=== PATIENT | female | born 2000 | race Caucasian/White ===

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

== ENCOUNTER 2018-01-19 21:21 | Emergency (ER) | payer MEDICAID ==
[~2018-01-19] VITALS: Ht 162.6 cm; Wt 52.2 kg
[2018-01-19 21:30] VITALS: BP 153/84
[2018-01-19 22:06] LABS: APPEARANCE,URINE CLOUDY (CLEAR); BILIRUBIN,URINE NEGATIVE (NEGATIVE); BLOOD, URINE NEGATIVE Ery/uL (NEGATIVE); COLOR,URINE YELLOW (YELLOW); KETONES,URINE NEGATIVE (NEGATIVE); LEUKOCYTE ESTERASE ,URINE NEGATIVE (NEGATIVE); NITRITE, URINE NEGATIVE (NEGATIVE); PROTEIN,URINE NEGATIVE (NEGATIVE); UGLUCOSE NEGATIVE (NEGATIVE)
[2018-01-19 22:10] LABS: BACTERIA,URINE Few /HPF (None Seen); RBC,URINE 0-2 /HPF (0-2); SQUAMOUS EPITHELIAL CELL,UR Few /HPF (None Seen); URINE AMORPHOUS PHOSPHATES Moderate /HPF (None Seen); WBC,URINE 0-2 /HPF (0-3)
--- NOTE | 2018-01-19 23:00 | NUR ---
Patient discharged to home in stable condition. Written and verbal after care instructions given. Patient verbalizes understanding of instruction. VSS upon discharge.
== END 2018-01-19 23:01 | disposition home or self-care (01) ==
LOC: ER 21:22
DX: R10.32 Left lower quadrant pain (principal); N94.0 Mittelschmerz; G43.909 Migraine, unspecified, not intractable, without status migrainosus; F41.9 Anxiety disorder, unspecified
CPT/HCPCS: 76856; 81001; 84703; 87491; 87591; 99285; A4606; Z7610; 81000-TC

== ENCOUNTER 2018-04-10 21:42 | Emergency (ER) | payer OTHER ==
[~2018-04-10] VITALS: Ht 162.6 cm; Wt 54.4 kg
--- NOTE | 2018-04-11 00:11 | NUR ---
PT BIBSELF PT C/O TINGLING SENSATION ON LEFT ARM, HEADACHE SINCE THIS MORNING. PT AOX3 RR EVEN AND UNLABORED. NO SOB NOTED. PT NOT DIAPHORETIC. PT GOWNED AND PLACED ON MONITOR WAITING FOR MD NEGRON.
--- NOTE | 2018-04-11 00:25 | NUR ---
DR. BUTT AT BEDSIDE FOR EVAL.
[2018-04-11] MEDS ORDERED: ASPIRIN 81 MG TAB.CHEW PO ONE (00:30)
--- NOTE | 2018-04-11 00:35 | NUR ---
CALLED LAB FOR BLOOD DRAW.
[2018-04-11] MEDS ORDERED: ASPIRIN 81 MG TAB.CHEW ONE (00:41)
--- NOTE | 2018-04-11 00:43 | NUR ---
LAB AT BEDSIDE FOR BLOOD DRAW
--- NOTE | 2018-04-11 00:49 | NUR ---
MOTHER AT BEDSIDE.
--- NOTE | 2018-04-11 00:52 | NUR ---
RADIOLOGY AT BEDSIDE FOR CXR
[2018-04-11 00:55] LABS: BASOPHILS % (AUTO) 0.2 % (0.0-2.0); EOSINOPHILS % (AUTO) 0.6 % (0.0-6.0); HEMATOCRIT 44 % (33-45); HEMOGLOBIN 14.9 g/dL (11.5-14.8); LYMPHOCYTES # (AUTO) 2.2 /CMM (0.8-4.8); LYMPHOCYTES % (AUTO) 23.2 % (20.0-44.0); MEAN CORPUSCULAR HGB CONC 34 g/dl (31.0-36.0); MEAN CORPUSCULAR VOLUME 88 fL (82-100); MONOCYTES # (AUTO) 0.5 /CMM (0.1-1.30); MONOCYTES % (AUTO) 5.2 % (2.0-12.0); NEUTROPHILS # (AUTO) 6.6 /CMM (1.8-8.9); NEUTROPHILS % (AUTO) 70.8 % (43.0-81.0); PLATELET COUNT (AUTO) 244 /CMM (150-450); RDW COEFFICIENT OF VARIATION 13.1 (11.5-15.0); RED BLOOD CELL COUNT(AUTO) 4.94 MIL/uL (4.0-5.2); WHITE BLOOD COUNT (AUTO) 9.4 K/uL (4.3-11.0)
[2018-04-11 01:02] LABS: CALCIUM, SERUM 9.3 mg/dL (8.5-10.1); CARBON DIOXIDE 26 mmol/L (21-32); CHLORIDE 101 mmol/L (98-107); CREATININE 0.5 mg/dL (0.6-1.3); GLUCOSE 88 mg/dL (74-106); POTASSIUM 3.7 mmol/L (3.5-5.1); SODIUM SERUM 139 mmol/L (136-145); UREA NITROGEN, BLOOD 9 mg/dL (7-18)
[2018-04-11 01:10] LABS: TROPONIN I < 0.017 ng/mL (0.00-0.056)
[2018-04-11 01:15] LABS: ALANINE AMINOTRANSFERASE 17 U/L (12-78); ALBUMIN 4.7 g/dL (3.4-5.0); ALKALINE PHOSPHATASE 47 U/L (46-116); ASPARTATE AMINOTRANSFERASE 21 U/L (15-37); B-TYPE NATRIURETIC PEPTIDE 44 PG/ML (0-125); BILIRUBIN,DIRECT 0.1 mg/dL (0.0-0.2); BILIRUBIN,TOTAL 0.5 mg/dL (0.2-1.0); TOTAL PROTEIN, SERUM 8.3 g/dL (6.4-8.2)
--- NOTE | 2018-04-11 01:50 | NUR ---
DR. BUTT AT BEDSIDE REGARDING RESULTS.
--- NOTE | 2018-04-11 01:58 | NUR ---
DPatient discharged to home in stable condition. Written and verbal after care instructions given. Patient verbalizes understanding of instruction. ambulatory with a steady gait. instructed pt not to drive. pt verbalize understanding. pt accompanied by mother.
[2018-04-11 02:00] VITALS: BP 130/68
== END 2018-04-11 02:00 | disposition home or self-care (01) ==
LOC: ER 21:42
DX: R07.89 Other chest pain (principal); R20.2 Paresthesia of skin; F41.9 Anxiety disorder, unspecified; G43.909 Migraine, unspecified, not intractable, without status migrainosus; F17.200 Nicotine dependence, unspecified, uncomplicated
CPT/HCPCS: 36415; 71045; 80048; 80076; 83880; 84484; 84703; 85025; 85378; 93005; 99285; A4606 ×2; Z7610 ×2

== ENCOUNTER 2018-07-03 13:30 | Emergency (ER) | payer MEDICAID, OTHER ==
[~2018-07-03] VITALS: Ht 162.6 cm; Wt 56.2 kg
[2018-07-03 13:30] VITALS: BP 138/80
[2018-07-03] MEDS ORDERED: ACETAMINOPHEN 325 MG TABLET ONE ×2 (13:55→14:00)
[2018-07-03] MEDS ORDERED: IBUPROFEN 600 MG TABLET PO ONE ×2 (13:56→14:00)
[2018-07-03] MEDS ORDERED: ACETAMINOPHEN 325 MG TABLET PO ONE (14:00)
== END 2018-07-03 14:18 | disposition home or self-care (01) ==
LOC: ER 13:32
DX: M54.41 Lumbago with sciatica, right side (principal); M25.551 Pain in right hip; G43.909 Migraine, unspecified, not intractable, without status migrainosus; F41.9 Anxiety disorder, unspecified
CPT/HCPCS: 99283; A4606; Z7610

== ENCOUNTER 2018-08-11 16:26 | Emergency (ER) | payer MEDICAID, OTHER ==
[~2018-08-11] VITALS: Ht 152.4 cm; Wt 65.8 kg
[2018-08-11 17:39] VITALS: BP 134/74
[2018-08-11 18:03] LABS: APPEARANCE,URINE Clear (CLEAR); BILIRUBIN,URINE Negative (NEGATIVE); BLOOD, URINE Negative Ery/uL (NEGATIVE); COLOR,URINE Yellow (YELLOW); KETONES,URINE Negative (NEGATIVE); LEUKOCYTE ESTERASE ,URINE Negative (NEGATIVE); NITRITE, URINE Negative (NEGATIVE); PROTEIN,URINE Negative (NEGATIVE); UGLUCOSE Negative (NEGATIVE); UROBILINOGEN,URINE 0.2 EU/dL (0.2)
== END 2018-08-11 19:31 | disposition home or self-care (01) ==
LOC: ER 16:32
DX: N76.0 Acute vaginitis (principal); G43.909 Migraine, unspecified, not intractable, without status migrainosus; F17.200 Nicotine dependence, unspecified, uncomplicated
CPT/HCPCS: 81001; 84703; 87210; 87491; 87591; 99284; A4606; Z7610; 81000-TC

== ENCOUNTER 2018-12-20 18:21 | Emergency (ER) | payer MEDICAID, OTHER ==
[~2018-12-20] VITALS: Ht 162.6 cm; Wt 54.4 kg
[2018-12-20 19:01] VITALS: BP 127/87
[2018-12-20] MEDS ORDERED: IBUPROFEN 600 MG TABLET PO ONE ×2 (19:30→19:45)
== END 2018-12-20 20:21 | disposition home or self-care (01) ==
LOC: ER 18:21
DX: J06.9 Acute upper respiratory infection, unspecified (principal); G43.909 Migraine, unspecified, not intractable, without status migrainosus; F41.9 Anxiety disorder, unspecified
CPT/HCPCS: 71045; 84703; 87070; 87880; 99284; A4606; 86403-TC

== ENCOUNTER 2019-01-01 06:57 | Emergency (ER) | payer OTHER ==
[~2019-01-01] VITALS: Ht 162.6 cm; Wt 54.4 kg
[2019-01-01 07:00] VITALS: BP 114/70
[2019-01-01] MEDS ORDERED: ACETAMINOPHEN ES 500 MG TABLET ONE (07:08)
[2019-01-01] MEDS ORDERED: IBUPROFEN 600 MG TABLET PO ONE (07:09)
[2019-01-01] MEDS ORDERED: ACETAMINOPHEN 650 MG/20.3 ML UDC ONE (07:13)
--- NOTE | 2019-01-01 07:21 | NUR ---
Patient discharged to home in stable condition. Written and verbal after care instructions given. Patient verbalizes understanding of instruction.
[2019-01-01] MEDS ORDERED: ACETAMINOPHEN 650 MG/20.3 ML UDC PO ONE (07:30)
== END 2019-01-01 07:22 | disposition home or self-care (01) ==
LOC: ER 07:00
DX: J11.1 Influenza due to unidentified influenza virus with other respiratory manifestations (principal); G43.909 Migraine, unspecified, not intractable, without status migrainosus; F41.9 Anxiety disorder, unspecified
CPT/HCPCS: 99283; A4606

== ENCOUNTER 2019-05-29 18:49 | Emergency (ER) | payer OTHER ==
[~2019-05-29] VITALS: Ht 162.6 cm; Wt 51.7 kg
[2019-05-29 18:55] VITALS: BP 140/95
[2019-05-29] MEDS ORDERED: KETOROLAC TROMETHAMINE INJ 60 MG/2 ML VIAL IM ONE (19:30)
--- NOTE | 2019-05-29 19:44 | NUR ---
Patient discharged to home in stable condition. Written and verbal after care instructions given. Patient verbalizes understanding of instruction.
[2019-05-29] MEDS ORDERED: KETOROLAC TROMETHAMINE INJ 30 MG/ML VIAL ONE (20:17)
== END 2019-05-29 19:46 | disposition home or self-care (01) ==
LOC: ER 18:55
DX: S46.811A Strain of other muscles, fascia and tendons at shoulder and upper arm level, right arm, initial encounter (principal); X58.XXXA Exposure to other specified factors, initial encounter; Y93.89 Activity, other specified; Y92.89 Other specified places as the place of occurrence of the external cause; Y99.8 Other external cause status
CPT/HCPCS: 99283; J1885

== ENCOUNTER 2019-11-03 17:22 | Emergency (ER) | payer OTHER ==
[~2019-11-03] VITALS: Ht 162.6 cm; Wt 54.4 kg
--- NOTE | 2019-11-03 18:43 | NUR ---
urine - sent to labs
[2019-11-03 18:46] LABS: APPEARANCE,URINE Clear (CLEAR); BILIRUBIN,URINE Negative (NEGATIVE); BLOOD, URINE Negative Ery/uL (NEGATIVE); COLOR,URINE Yellow (YELLOW); KETONES,URINE Negative (NEGATIVE); LEUKOCYTE ESTERASE ,URINE Negative (NEGATIVE); NITRITE, URINE Negative (NEGATIVE); PROTEIN,URINE Negative (NEGATIVE); UGLUCOSE Negative (NEGATIVE); UROBILINOGEN,URINE 0.2 EU/dL (0.2)
[2019-11-03] MEDS ORDERED: MAG HYDROX/AL HYDROX/SIMETH 30 ML UDC PO ONE (19:30)
[2019-11-03] MEDS ORDERED: FAMOTIDINE (20 MG) 20 MG TABLET PO ONE (19:30)
[2019-11-03] MEDS ORDERED: LIDOCAINE VISCOUS 2% UD 15 ML UDC MM ONE (19:30)
[2019-11-03 19:31] LABS: BASOPHILS % (AUTO) 0.2 % (0.0-2.0); EOSINOPHILS % (AUTO) 1.5 % (0.0-6.0); HEMATOCRIT 39 % (33-45); HEMOGLOBIN 13.8 g/dL (11.5-14.8); LYMPHOCYTES # (AUTO) 1.3 /CMM (0.8-4.8); LYMPHOCYTES % (AUTO) 17.8 % (20.0-44.0); MEAN CORPUSCULAR HGB CONC 35 g/dl (31.0-36.0); MEAN CORPUSCULAR VOLUME 85 fL (82-100); MONOCYTES # (AUTO) 0.7 /CMM (0.1-1.30); MONOCYTES % (AUTO) 9.2 % (2.0-12.0); NEUTROPHILS # (AUTO) 5.2 /CMM (1.8-8.9); NEUTROPHILS % (AUTO) 71.3 % (43.0-81.0); PLATELET COUNT (AUTO) 214 /CMM (150-450); RED BLOOD CELL COUNT(AUTO) 4.61 MIL/uL (4.0-5.2); WHITE BLOOD COUNT (AUTO) 7.3 K/uL (4.3-11.0)
[2019-11-03 19:38] LABS: CALCIUM, SERUM 9.2 mg/dL (8.5-10.1); CREATININE 0.5 mg/dL (0.6-1.3); POTASSIUM 3.7 mmol/L (3.5-5.1)
[2019-11-03 19:44] LABS: BILIRUBIN,DIRECT 0.1 mg/dL (0.0-0.2); BILIRUBIN,TOTAL 0.4 mg/dL (0.2-1.0); TOTAL PROTEIN, SERUM 7.5 g/dL (6.4-8.2)
[2019-11-03] MEDS ORDERED: LIDOCAINE VISCOUS 2% UD 15 ML UDC ONE (20:37)
[2019-11-03] MEDS ORDERED: MAG HYDROX/AL HYDROX/SIMETH 30 ML UDC ONE (20:37)
[2019-11-03] MEDS ORDERED: FAMOTIDINE (20 MG) 20 MG TABLET ONE (20:37)
[2019-11-03 20:50] VITALS: BP 118/82
== END 2019-11-03 20:50 | disposition home or self-care (01) ==
LOC: ER 17:24
DX: R10.13 Epigastric pain (principal)
CPT/HCPCS: 36415; 80048-TC; 80076-TC; 81000-TC; 83690-TC; 84703-TC; 85025-TC

== ENCOUNTER 2022-06-07 00:13 | Emergency (ER) | payer OTHER ==
[~2022-06-07] VITALS: Ht 162.6 cm; Wt 54.4 kg
[2022-06-07 01:17] VITALS: BP 132/91
--- NOTE | 2022-06-07 01:17 | NUR ---
BIBS C/O L ARM PAIN S/P FALLING WHILE ROLLERBLADING. -HT -KO. PT AWAKE AND ALERT X4 BREATHING EVEN AND UNLABORED. AMBULATORY WITH STEADY GATE.
[2022-06-07] MEDS ORDERED: HYDROCODONE/APAP 5/325MG TABLET ONE (01:26)
[2022-06-07] MEDS ORDERED: HYDROCODONE/APAP 5/325MG TABLET PO ONE (01:30)
[2022-06-07] MEDS ORDERED: TYL2T PO (02:54)
[2022-06-07] MEDS ORDERED: IBUP-1953 PO (02:54)
[2022-06-07] MEDS ORDERED: NAPROXEN 500 MG TABLET PO SCH (03:00)
[2022-06-07] MEDS ORDERED: NAPROXEN 250 MG TABLET ONE (03:01)
== END 2022-06-07 03:16 | disposition home or self-care (01) ==
LOC: ER 00:17
DX: S42.402A Unspecified fracture of lower end of left humerus, initial encounter for closed fracture (principal); S49.92XA Unspecified injury of left shoulder and upper arm, initial encounter; V00.121A Fall from non-in-line roller-skates, initial encounter; Y93.I1 Activity, roller coaster riding; Y92.89 Other specified places as the place of occurrence of the external cause; Y99.8 Other external cause status
CPT/HCPCS: 73060-TC; 73080-TC; 73090-TC; 73110; 73130-TC

== ENCOUNTER 2023-10-31 23:21 | Emergency (ER) | payer OTHER ==
[~2023-10-31] VITALS: Ht 162.6 cm; Wt 56.2 kg
[~2023-10-31 23:21] MED LIST: IBUP-1953 PO; TYL2T PO
[2023-11-01] MEDS ORDERED: ONDANSETRON 4 MG TAB.RAPDIS SL ONE
[2023-11-01] MEDS ORDERED: ONDANSETRON 4 MG TAB.RAPDIS ONE
[2023-11-01] MEDS ORDERED: ONDA4TAB5 PO (01:35)
[2023-11-01] MEDS ORDERED: BENZ-13 PO (01:35)
[2023-11-01 01:45] VITALS: BP 132/89; TEMP 98.9; O2SAT 99
== END 2023-11-01 01:45 | disposition home or self-care (01) ==
LOC: ER 23:24
DX: J06.9 Acute upper respiratory infection, unspecified (principal); Z20.822 Contact with and (suspected) exposure to COVID-19
CPT/HCPCS: 99283; 87804 ×2; 87426; C9803; Q0162

== ENCOUNTER 2025-02-16 07:56 | Emergency (ER) | payer OTHER ==
[~2025-02-16] VITALS: Ht 162.6 cm; Wt 59.0 kg
[~2025-02-16 07:56] MED LIST changes: +BENZ-13 PO; +ONDA4TAB5 PO
[2025-02-16] MEDS ORDERED: PANTOPRAZOLE 40 MG VIAL ONE (08:33)
[2025-02-16] MEDS: PANTOPRAZOLE 40 MG VIAL IV ONE (08:36)
[2025-02-16] MEDS: IV NS 0.9% 1,000 ML BAG IV ONE (08:36)
[2025-02-16 08:40] LABS: BASOPHILS % (AUTO) 0.3 % (0.0-2.0); EOSINOPHILS % (AUTO) 0.4 % (0.0-6.0); HEMATOCRIT 43 % (33-45); HEMOGLOBIN 14.8 g/dL (11.5-14.8); LYMPHOCYTES # (AUTO) 1.1 K/uL (0.8-4.8); LYMPHOCYTES % (AUTO) 19.6 % (20.0-44.0); MEAN CORPUSCULAR HEMOGLOBIN 29 PG (26.0-33.0); MEAN CORPUSCULAR HGB CONC 34 g/dl (31.0-36.0); MEAN CORPUSCULAR VOLUME 85 fL (82-100); MONOCYTES # (AUTO) 0.3 K/uL (0.1-1.30); NEUTROPHILS # (AUTO) 4.3 K/uL (1.8-8.9); NEUTROPHILS % (AUTO) 74.7 % (43.0-81.0); PLATELET COUNT (AUTO) 247 K/uL (150-450); RED BLOOD CELL COUNT(AUTO) 5.08 MIL/uL (4.0-5.2); RED CELL DISTRIBUTION WIDTH 12.7 % (11.5-15.0); WHITE BLOOD COUNT (AUTO) 5.7 K/uL (4.3-11.0)
[2025-02-16 08:45] LABS: CALCIUM, SERUM 9.3 mg/dL (8.5-10.1); CREATININE 0.6 mg/dL (0.6-1.3); POTASSIUM 3.8 mmol/L (3.5-5.1)
[2025-02-16 08:51] LABS: ALBUMIN 4.3 g/dL (3.4-5.0); BILIRUBIN,DIRECT 0.1 mg/dL (0.0-0.2); BILIRUBIN,TOTAL 0.5 mg/dL (0.2-1.0); TOTAL PROTEIN, SERUM 7.7 g/dL (6.4-8.2)
[2025-02-16 09:00] LABS: INR 1.03 (0.91-1.10); PARTIAL THROMBOPLASTIN TIME 24.8 SEC (24.3-34.3); PROTHROMBIN TIME 10.9 SECS (9.2-11.1)
[2025-02-16 10:34] VITALS: BP 118/70; TEMP 98; O2SAT 97
== END 2025-02-16 10:35 | disposition home or self-care (01) ==
LOC: ER 08:00
DX: R04.0 Epistaxis (principal); K92.0 Hematemesis; Z79.899 Other long term (current) drug therapy
CPT/HCPCS: 99283; 96374; 96361; 85025; 80048; 80076; 36415; 85730; 86850; 84702; J7030; J2470